=== PATIENT | female | born 1960 | race Caucasian/White ===

== ENCOUNTER → 2016-12-16 | Outpatient (CLI) | payer BC ==
--- NOTE | 2016-12-16 08:54 | US ---
EXAMINATION TYPE: US gallbladder DATE OF EXAM: 12/16/2016 COMPARISON: NONE CLINICAL HISTORY: Pain and Dyspepsia K30. EXAM MEASUREMENTS: Liver Length: 20.1 cm Gallbladder Wall: 0.2 cm CBD: 0.3 cm Right Kidney: 12.2 x 5.3 x 4.8 cm Pancreas: Tail obscured by overlying bowel gas Liver: Very difficult to penetrate, increased attenuation, hepatomegaly, decreased visualization of vessels Gallbladder: there appears to be some dependant sludge Evidence for sonographic Forte's sign: no CBD: wnl Right Kidney: inferior pole obscured by overlying bowel gas IMPRESSION: 1. Gallbladder sludge 2. Increased echo pattern of liver can be seen with fatty infiltration, hepatitis or hepatocellular d isease.
== END | disposition home or self-care (01) ==
LOC: RADUSWWP 08:11
PROVIDERS: ATTEND Family Medicine
DX: K82.8 Other specified diseases of gallbladder (principal); R10.9 Unspecified abdominal pain
CPT/HCPCS: 76705

== ENCOUNTER → 2016-12-28 | Outpatient (CLI) | payer BC ==
--- NOTE | 2016-12-28 11:08 | NM ---
EXAMINATION TYPE: NM hepatobiliary w EF DATE OF EXAM: 12/28/2016 COMPARISON: Gallbladder ultrasound December 16, 2016 HISTORY: Dyspepsia and cholecystitis per order. Heartburn-like symptoms per patient. TECHNIQUE: After the intravenous administration of 5.19 mCi Tc 99m Mebrofenin hepatobiliary scintigra phy is performed. Immediate images post injection. FINDINGS: There is satisfactory initial accumulation of tracer by the liver. The gallbladder is visualized wit hin 55 minutes. The small bowel activity is noted within 15 minutes. At one hour 8 ounces of oral e nsure plus is given to mimic CCK and gallbladder ejection fraction is calculated at 73 %, in the norm al range. Therefore there is no scintigraphic evidence of cystic or common bile duct obstruction to suggest acute cholecystitis or gallbladder dyskinesia. IMPRESSION: Exam is within normal limits.
== END ==
LOC: RADNMMAIN 06:50
PROVIDERS: ATTEND Family Medicine
DX: R10.9 Unspecified abdominal pain (principal); K30 Functional dyspepsia; K81.9 Cholecystitis, unspecified
CPT/HCPCS: 78226; A9537

== ENCOUNTER → 2019-05-08 | Outpatient (CLI) | payer BC ==
--- NOTE | 2019-05-08 10:11 | XR ---
EXAMINATION TYPE: XR chest 2V, XR ribs LT DATE OF EXAM: 05/08/2019 COMPARISON: NONE HISTORY: Dyspnea, trauma and pain TECHNIQUE: Frontal and lateral views of the chest are obtained. 4 views of the left ribs. FINDINGS: The patient is rotated. Nodular densities noted at the level the right hemidiaphragm. It me asures approximately 13 mm. Questionable nodular density at the left costophrenic angle. There is no focal air space opacity, pleural effusion, or pneumothorax seen. The cardiac silhouette size is with in normal limits. The osseous structures are intact. Specifically, no evident displaced rib fractur e. Thoracic spondylosis is noted incidentally. IMPRESSION: Basilar lung nodule, recommend chest CT, report relayed telephonically to the office of Dr. Narayanan at the time of interpretation at exam. Bone scan could be performed for increased sensi tivity for possible nondisplaced rib fracture as indicated.
== END | disposition home or self-care (01) ==
LOC: RADXRYALE 08:55
PROVIDERS: ATTEND Family Medicine
DX: R91.1 Solitary pulmonary nodule (principal)
CPT/HCPCS: 71046

== ENCOUNTER → 2019-05-10 | Outpatient (CLI) | payer BC ==
--- NOTE | 2019-05-10 16:23 | CT ---
EXAMINATION TYPE: CT chest wo con DATE OF EXAM: 05/10/2019 COMPARISON: None HISTORY: solitary pulmonary nodule CT DLP: [address] of the chest was performed with lung and mediastinal window settings submitted. The la ck of contrast limits evaluation of the vascular, mediastinal and parenchymal structures including th e upper abdomen. LUNGS: The lungs are clear and free of infiltrate. No atelectasis. 1.4 cm calcified pulmonary nodule right lung base is compatible with granuloma. No additional nodules are identified. No evidence for m ass. No pleural effusion. No CT evidence of interstitial lung disease. MEDIASTINUM/OTNNY: Calcified mediastinal lymph nodes noted. Thoracic aorta is of normal caliber with limited evaluation given lack of contrast. The heart is not enlarged. No evidence for mediastinal m ass. No lymph nodes greater than 1cm. UPPER ABDOMEN: No significant abnormality is seen. OTHER: No significant other abnormality. IMPRESSION: 1. Evidence of remote granulomatous disease.
== END | disposition home or self-care (01) ==
LOC: RADCTMAIN 15:55
PROVIDERS: ATTEND Family Medicine
DX: R91.1 Solitary pulmonary nodule (principal)
CPT/HCPCS: 71250